=== PATIENT | male | born 1945 | race Caucasian/White ===

== ENCOUNTER 2020-04-12 16:42 | Emergency (ER) | payer MEDICARE, BC ==
[~2020-04-12] VITALS: Ht 182.9 cm; Wt 80.7 kg
--- NOTE | 2020-04-12 17:56 | Emergency Department Note ---
History of Present Illnes History of Present Illness Chief Complaint: General Medicine Complaints History of Present Illness This is a 74 year old male arrives to the ED after accidentally hitting his hand with a lawnmower pulled. Patient states a lawnmower pull snapped and hit him on his left hand denies any trauma denies any pain. Chief Complaint Comment PATIENT IN FROM HOME WITH COMPLAINTS OF LEFT HAND PUNCTURE FROM A LAWNMOWER PULL STARTS; PATIENT STATES HE HAD DIFFICULTY GETTING THE BLEEDING TO STOP AT HOME; PATIENT ALERT AND ORIENTED, RESP EVEN AND NONLABORED, APPEARS IN NO DISTRESS. NO BLEEDING NOTED IN TRIAGE Historian: Patient Arrival Mode: Car Onset (how long ago): minute(s) Radiation: non-radiation Onset quality: sudden Duration (how long): hour(s) Progression: unchanged Context: trauma/injury Exacerbating factors: none Associated symptoms: denies other symptoms Treatments prior to arrival: none Past Medical/Family History Physician Review I have reviewed the patient's past medical and family history. Any updates have been documented here. Past Medical History Recent Fever: No Clinical Suspicion of Infectio: No New/Unexplained Change in Ment: No Past Medical History: Diabetes Past Surgical History: Appendectomy, Hernia Repair Social History Smoking Cessation: Never Smoker Counseling Performed: No Alcohol Use: None Any Illegal Drug Use: No TB Exposure/Symptoms: No Physically hurt or threatened: No Family History Family history of heart diseas: No Other Last Tetanus: UNKNOWN Any Pre-Existing Lines (PICC,: No Is patient up to date on immun: Yes Last Flu: UTD Last Pneumovax: UTD Review of Systems Review of Systems Constitutional: no symptoms EENTM: no symptoms Cardiovascular: no symptoms Respiratory: no symptoms Gastrointestinal: no symptoms Genitourinary: no symptoms Musculoskeletal: no symptoms, other (hand abrasion/superficial laceration) Neurological: no symptoms Psychological: no symptoms Endocrine: no symptoms Hematological/Lymphatic: no symptoms Review of other systems All other systems reviewed and negative. Physical Exam Related Data Allergies: Coded Allergies: No Known Allergies (Unverified , 04/12/20) Triage Vital Signs Vital Signs Date Time Temp Pulse Resp B/P (MAP) Pulse Ox O2 Delivery O2 Flow Rate FiO2 04/12/20 16:53 97.9 85 18 165/95 96 Vital signs reviewed: Yes Physical Exam CONSTITUTIONAL Constitutional: well-developed, well-nourished HENT HENT: normocephalic, atraumatic, oropharynx clear/moist, nose normal HENT L/R: left ext ear normal, right ext ear normal EYES Eyes: PERRL, conjunctivae normal NECK Neck: ROM normal PULMONARY Pulmonary: effort normal, breath sounds normal CARDIOVASCULAR Cardiovascular: regular rhythm, heart sounds normal, capillary refill normal, n ormal rate GASTROINTESTINAL Abdominal: soft, nontender, bowel sounds normal GENITOURINARY Genitourinary: exam deferred SKIN Skin: warm, dry MUSCULOSKELETAL Musculoskeletal: ROM normal (superficial abrasion noted over the dorsal aspect of the left hand, no active bleeding, normal pulses,) NEUROLOGICAL Neurological: alert, oriented x 3, no gross motor or sensory deficits PSYCHOLOGICAL Psychological: mood/affect normal, judgement normal Results Imaging Imaging results reviewed: Yes Impressions IMPRESSION: No acute displaced fracture. Arthritic changes. Critical Care Time Subsequent provider I assumed direction of critical care for this patient from another provider of my specialty. Assessment & Plan Assessment & Plan Final Impression: (1) ABRASION OF LEFT HAND, INITIAL ENCOUNTER Assessment & Plan X-ray, tetanus, discharge Outpatient hand/plastics follow-up given Last Vital Signs Date Time Temp Pulse Resp B/P (MAP) Pulse Ox O2 Delivery O2 Flow Rate FiO2 04/12/20 16:53 97.9 85 18 165/95 96 KELLY VALDEZ DO Apr 12, 2020 17:56
--- NOTE | 2020-04-12 18:20 | Diagnostic Imaging Report ---
HAND 3+ VIEWS LEFT - 3 views HISTORY: Left hand injury. Trauma. COMPARISON: None available. FINDINGS: Bones: No acute displaced fracture. 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 Joints: Moderate degenerative osteoarthrosis of the first carpometacarpal joint. Mild degenerative changes of the DIP and interphalangeal joints with subchondral erosions. Soft tissues: The soft tissues appear unremarkable. IMPRESSION: No acute displaced fracture. Arthritic changes. Signed by: Dr. Micheline Durant M.D. on 04/12/2020 6:17 PM
[2020-04-12] MEDS ORDERED: AUGMENTIN 875-1 EACH PO (18:38)
--- NOTE | 2020-04-12 19:09 | NUR ---
PATIENT HYPERTENSIVE IN TRIAGE; PER FAMILY HE ALWAYS HAS HIGH BLOOD PRESSURE AT THE HOSPITAL. PATIENT ASYMPTOMATIC, DENIES SHORTNESS OF BREATH OR CHEST PAIN. PATIENTS DAUGHTER STATES THAT SHE IS GOING TO STAY WITH HIM TONIGHT AND WILL MONITOR HIS BLOOD PRESSURE
[2020-04-12 19:12] VITALS: BP 193/115
== END 2020-04-12 19:13 | disposition home or self-care (01) ==
LOC: ER 16:42
DX: S60.512A Abrasion of left hand, initial encounter (principal); W22.8XXA Striking against or struck by other objects, initial encounter; Y93.H2 Activity, gardening and landscaping; Y92.007 Garden or yard of unspecified non-institutional (private) residence as the place of occurrence of the external cause; E11.9 Type 2 diabetes mellitus without complications
CPT/HCPCS: 99283

== ENCOUNTER → 2021-01-31 | Day surgery (SDC) | payer MEDICARE, BC ==
[2021-01-27 10:28] LABS: BASOPHILS % 0.8 % (0.0-1.0); EOSINOPHILS # (AUTO) 0.2 (0.0-0.4); EOSINOPHILS % 4.8 % (0.0-6.0); HEMATOCRIT 37.6 % (38.2-49.6); HEMOGLOBIN 13.1 g/dL (14.0-18.0); LYMPHOCYTES # (AUTO) 1.6 (1.0-3.2); LYMPHOCYTES % 32.5 % (18.0-39.1); MEAN CORPUSCULAR HEMOGLOBIN 31.9 pg (28-32); MEAN CORPUSCULAR HGB CONC 34.8 g/dL (31-35); MEAN CORPUSCULAR VOLUME 91.5 fL (81-99); MONOCYTES # (AUTO) 0.6 (0.2-0.8); NEUTROPHILS # (AUTO) 2.5 (2.1-6.9); NEUTROPHILS % 50.7 % (38.7-80.0); PLATELET COUNT 234 x10e3/uL (140-360); RED BLOOD COUNT 4.11 x10e6/uL (4.3-5.7); RED CELL DISTRIBUTION WIDTH 11.8 % (11.7-14.4)
[~2021-01-31] MED LIST: AMITRIPTYLINE H25 MG PO; ARICEPT5 MG PO; AUGMENTIN 875-1 EACH PO; EPHEDRINE SULFATE INJ 50 MG/ML VIAL ONE; FENTANYL CITRATE/PF 100MCG/2 ML INJ ONE; GLUCAGON FOR INJ 1 MG VIAL ONE; HUMALOG MI100 UNIT/2 SQ; HYOSCYAMINE SULFATE 0.5 MG/ML INJ ONE; INSULIN REGULAR, HUMAN 100 UNIT/1 ML 3ML VIAL ONE; LANTUS 3ML100 UNITS/ SC; LIDOCAINE HCL 2% LOCAL INJ 5 ML SDV VIAL INJ ONE; LYRICA150 MG PO; MELOXICAM7.5 MG PO; MIDAZOLAM HCL 2 MG/2 ML VIAL ONE; NAMENDA10 MG PO; PROPOFOL IV EMULSION 10 MG/ML 20 ML VIAL ONE; VITAMIN B COMP1 EACH PO
[2021-01-31 10:30] VITALS: BP 100/69
== END | disposition home or self-care (01) ==
LOC: OR 06:05
PROVIDERS: ATTEND Internal Medicine Gastroenterology
DX: Z12.11 Encounter for screening for malignant neoplasm of colon (principal); K62.1 Rectal polyp; K64.8 Other hemorrhoids; K59.09 Other constipation; K21.9 Gastro-esophageal reflux disease without esophagitis; E11.9 Type 2 diabetes mellitus without complications; R03.0 Elevated blood-pressure reading, without diagnosis of hypertension; F01.50 Vascular dementia, unspecified severity, without behavioral disturbance, psychotic disturbance, mood disturbance, and anxiety; Z01.810 Encounter for preprocedural cardiovascular examination; Z01.812 Encounter for preprocedural laboratory examination; Z20.822 Contact with and (suspected) exposure to COVID-19; Z79.4 Long term (current) use of insulin; Z86.73 Personal history of transient ischemic attack (TIA), and cerebral infarction without residual deficits
CPT/HCPCS: 36415 ×2; 45384; 82948; 85025; 88305; 93005; J2250; J3010; U0002; 45378; J1610; J1817; J1980; J2001

== ENCOUNTER 2021-05-21 12:24 | Emergency (ER) | payer MEDICARE, BC ==
[~2021-05-21] VITALS: Ht 182.9 cm; Wt 80.7 kg
[~2021-05-21 12:24] MED LIST changes: -EPHEDRINE SULFATE INJ 50 MG/ML VIAL ONE; -FENTANYL CITRATE/PF 100MCG/2 ML INJ ONE; -GLUCAGON FOR INJ 1 MG VIAL ONE; -HYOSCYAMINE SULFATE 0.5 MG/ML INJ ONE; -INSULIN REGULAR, HUMAN 100 UNIT/1 ML 3ML VIAL ONE; -LIDOCAINE HCL 2% LOCAL INJ 5 ML SDV VIAL INJ ONE; -MIDAZOLAM HCL 2 MG/2 ML VIAL ONE; -PROPOFOL IV EMULSION 10 MG/ML 20 ML VIAL ONE
== END 2021-05-21 13:33 | disposition home or self-care (01) ==
LOC: ER 12:39
DX: S61.305A Unspecified open wound of left ring finger with damage to nail, initial encounter (principal); W26.8XXA Contact with other sharp object(s), not elsewhere classified, initial encounter; Y93.H9 Activity, other involving exterior property and land maintenance, building and construction; Y92.008 Other place in unspecified non-institutional (private) residence as the place of occurrence of the external cause; E11.9 Type 2 diabetes mellitus without complications
CPT/HCPCS: 99283

== ENCOUNTER 2021-06-09 13:20 | Outpatient (RCR) | payer MEDICARE, BC ==
[2021-06-02 12:55] LABS: BASOPHILS % 0.6 % (0.0-1.0); EOSINOPHILS # (AUTO) 0.2 (0.0-0.4); EOSINOPHILS % 4.4 % (0.0-6.0); HEMATOCRIT 37.1 % (38.2-49.6); HEMOGLOBIN 12.4 g/dL (14.0-18.0); LYMPHOCYTES # (AUTO) 1.4 (1.0-3.2); LYMPHOCYTES % 25.9 % (18.0-39.1); MEAN CORPUSCULAR HEMOGLOBIN 31.6 pg (28-32); MEAN CORPUSCULAR HGB CONC 33.4 g/dL (31-35); MEAN CORPUSCULAR VOLUME 94.4 fL (81-99); MONOCYTES # (AUTO) 0.5 (0.2-0.8); MONOCYTES % 9.1 % (4.4-11.3); NEUTROPHILS # (AUTO) 3.2 (2.1-6.9); NEUTROPHILS % 59.6 % (38.7-80.0); PLATELET COUNT 252 x10e3/uL (140-360); RED BLOOD COUNT 3.93 x10e6/uL (4.3-5.7); RED CELL DISTRIBUTION WIDTH 11.8 % (11.7-14.4)
[2021-06-02 13:16] LABS: ALBUMIN 3.8 g/dL (3.5-5.0); ALBUMIN/GLOBULIN RATIO 1.4 (0.8-2.0); ANION GAP 11.6 mmol/L (8-16); CALCIUM 8.7 mg/dL (8.4-10.2); CREATININE, SERUM 0.86 mg/dL (0.72-1.25); POTASSIUM 4.6 mmol/L (3.5-5.1)
[~2021-06-09 13:20] MED LIST changes: +LIDOCAINE VISC 2% SOLN 15 ML UDC ONE; +LIDOCAINE/PRILOCAINE 2.5-2.5% KIT ONE
[2021-06-12] MEDS ORDERED: JUVEN PACKET1 EACH (15:34)
[2021-06-12] MEDS ORDERED: B COMPLEX1 EACH (15:34)
[2021-06-12] MEDS ORDERED: VITAMIN C500 MG PO (15:34)
[2021-06-12] MEDS ORDERED: CITALOPRAM HBR20 MG PO (15:35)
== END 2021-06-11 ==
LOC: WCC 13:20
PROVIDERS: ATTEND Family Medicine Adult Medicine
DX: E10.628 Type 1 diabetes mellitus with other skin complications (principal); S51.802A Unspecified open wound of left forearm, initial encounter; G99.0 Autonomic neuropathy in diseases classified elsewhere; G45.9 Transient cerebral ischemic attack, unspecified; I10 Essential (primary) hypertension; F33.0 Major depressive disorder, recurrent, mild; W28.XXXA Contact with powered lawn mower, initial encounter
CPT/HCPCS: 36415; 80053; 83036; 84134; 85025

== ENCOUNTER 2021-06-16 05:57 | Observation (INO) | payer MEDICARE, BC ==
[2021-06-13 11:24] LABS: BASOPHILS % 0.6 % (0.0-1.0); EOSINOPHILS # (AUTO) 0.3 (0.0-0.4); EOSINOPHILS % 4.2 % (0.0-6.0); HEMATOCRIT 38.5 % (38.2-49.6); HEMOGLOBIN 12.8 g/dL (14.0-18.0); LYMPHOCYTES # (AUTO) 1.6 (1.0-3.2); LYMPHOCYTES % 23.7 % (18.0-39.1); MEAN CORPUSCULAR HEMOGLOBIN 31.8 pg (28-32); MEAN CORPUSCULAR HGB CONC 33.2 g/dL (31-35); MEAN CORPUSCULAR VOLUME 95.8 fL (81-99); MONOCYTES # (AUTO) 0.5 (0.2-0.8); MONOCYTES % 7.5 % (4.4-11.3); NEUTROPHILS # (AUTO) 4.3 (2.1-6.9); NEUTROPHILS % 63.9 % (38.7-80.0); PLATELET COUNT 264 x10e3/uL (140-360); RED BLOOD COUNT 4.02 x10e6/uL (4.3-5.7)
[2021-06-13 11:34] LABS: INR 0.9; PROTHROMBIN TIME 12.3 seconds (11.9-14.5)
[2021-06-13 11:35] LABS: PARTIAL THROMBOPLASTIN TIME 32.7 seconds (23.8-35.5)
[2021-06-13 11:43] LABS: CREATININE, SERUM 0.89 mg/dL (0.72-1.25)
[~2021-06-16] VITALS: Ht 182.9 cm; Wt 80.7 kg
[~2021-06-16 05:57] MED LIST changes: +B COMPLEX1 EACH; +CITALOPRAM HBR20 MG PO; +JUVEN PACKET1 EACH; -LIDOCAINE VISC 2% SOLN 15 ML UDC ONE; -LIDOCAINE/PRILOCAINE 2.5-2.5% KIT ONE; +VITAMIN C500 MG PO
[2021-06-16] MEDS ORDERED: SODIUM CHLORIDE 0.9% 50ML 100 ML ONE (06:47)
[2021-06-16] MEDS ORDERED: THROMBIN FOR SOLN 5,000 UNIT VIAL ONE (07:07)
[2021-06-16] MEDS ORDERED: Vancomycin IV 1 GM VIAL ONE (07:07)
[2021-06-16] MEDS ORDERED: LIDOCAINE 1% W/EPINEPHRINE 20 ML VIAL ONE (07:07)
[2021-06-16] MEDS ORDERED: INSULIN REGULAR, HUMAN 100 UNIT/1 ML ONE ×2 (07:16→15:13)
[2021-06-16] MEDS ORDERED: HYDROCODON-ACE1 EA12 PO (09:13)
[2021-06-16] MEDS ORDERED: HYDROMORPHONE 2MG/ML 2 MG/ML ML IV PRN ×2 (09:15)
[2021-06-16] MEDS ORDERED: ONDANSETRON HCL INJ 2MG/ML 2ML 2 MG/ML VIAL IV PRN (09:15)
[2021-06-16] MEDS ORDERED: MORPHINE SULFATE 5 MG/ML VIAL IM PRN (09:15)
[2021-06-16] MEDS ORDERED: CEPACOL SORE THROAT LOZENGES PO PRN (09:15)
[2021-06-16] MEDS ORDERED: MAGNESIUM/ALUMINUM/SIMETHICONE 30 ML UDC PO PRN (09:15)
[2021-06-16] MEDS ORDERED: CARISOPRODOL 350 MG TAB PO PRN (09:15)
[2021-06-16] MEDS ORDERED: DEXTROSE 50% SYRINGE 50 ML IV PRN (09:15)
[2021-06-16] MEDS ORDERED: ACETAMINOPHEN 325 MG TAB PO PRN (09:15)
[2021-06-16] MEDS ORDERED: PROMETHAZINE HCL (IM) 25 MG/ML VIAL IM PRN (09:15)
[2021-06-16] MEDS ORDERED: GLYCOPYRROLATE INJ 0.2 MG/ML VIAL ONE (13:38)
[2021-06-16] MEDS ORDERED: ONDANSETRON HCL INJ 2MG/ML 2ML 2 MG/ML VIAL ONE (13:38)
[2021-06-16] MEDS ORDERED: SEVOFLURANE INHAL SOLN 250 ML PEN BTL ONE (13:38)
[2021-06-16] MEDS ORDERED: DEXAMETHASONE SOD PHOS INJ 4 MG/ML VIAL ONE (13:38)
[2021-06-16] MEDS ORDERED: KETOROLAC TROMETHAMINE 30 MG/ML VIAL ONE (13:38)
[2021-06-16] MEDS ORDERED: PROPOFOL IV EMULSION 10 MG/ML 20 ML VIAL ONE (13:38)
[2021-06-16] MEDS ORDERED: NEOSTIGMINE 1 MG/ML 10ML VIAL ONE (13:38)
[2021-06-16] MEDS ORDERED: PHENYLEPHRINE HCL 1% 10 MG/ML VIAL ONE (13:38)
[2021-06-16] MEDS ORDERED: POVIDONE IODINE 0.05% 0.05 % ML PO ONE (13:38)
[2021-06-16] MEDS ORDERED: ROCURONIUM BROMIDE 10 MG/ML 5ML VIAL IV ONE (13:38)
[2021-06-16] MEDS ORDERED: LIDOCAINE HCL 2% LOCAL INJ 5 ML SDV VIAL INJ ONE (13:38)
[2021-06-16] MEDS ORDERED: EPHEDRINE SULFATE INJ 50 MG/ML VIAL ONE (13:38)
[2021-06-16] MEDS ORDERED: ACETAMINOPHEN 325 MG TAB ONE (13:59)
[2021-06-16] MEDS: INSULIN LISPRO 100 UNIT/1 ML 3ML VIAL SQ SCH ×3 (15:11→21:00)
[2021-06-16 17:00] VITALS: BP_SYST 137; BP_SYST 145; BP_DIAS 68; BP_DIAS 81
[2021-06-16 17:14] VITALS: BP 137/68
[2021-06-16] MEDS: MEMANTINE 10 MG TAB PO SCH (17:33)
[2021-06-16] MEDS: PREGABALIN 75 MG CAP PO SCH (17:33)
[2021-06-16] MEDS: OXYCODONE/ACETAMINOPHEN 5-325 1 EACH TABLET PO PRN (17:48)
[2021-06-16] MEDS: Cefazolin 1 GM in SODIUM CHLORIDE 0.9% 50ML 50 ML IV SCH (17:49)
[2021-06-16] MEDS: LACTATED RINGER'S 1,000 ML IV SCH (19:02)
[2021-06-16 20:00] VITALS: BP 130/81
[2021-06-16 20:20] VITALS: BP 130/81
[2021-06-16] MEDS ORDERED: AMITRIPTYLINE HCL 25 MG TAB PO SCH (21:00)
[2021-06-16] MEDS ORDERED: DONEPEZIL HCL 5 MG TAB PO SCH (21:00)
[2021-06-16] MEDS ORDERED: ZOLPIDEM TARTRATE 5 MG TAB PO PRN (21:00)
[2021-06-17] VITALS: BP 148/81
[2021-06-17] MEDS: Cefazolin 1 GM in SODIUM CHLORIDE 0.9% 50ML 50 ML IV SCH ×2 (00:05→08:33)
[2021-06-17] MEDS: LACTATED RINGER'S 1,000 ML IV SCH ×2 (01:55→10:33)
[2021-06-17] MEDS: OXYCODONE/ACETAMINOPHEN 5-325 1 EACH TABLET PO PRN (03:45)
[2021-06-17 04:00] VITALS: BP 170/88
[2021-06-17] MEDS: INSULIN LISPRO 100 UNIT/1 ML 3ML VIAL SQ SCH ×2 (08:00→12:12)
[2021-06-17 08:04] VITALS: BP 157/85
[2021-06-17] MEDS: MEMANTINE 10 MG TAB PO SCH (08:33)
[2021-06-17] MEDS: PREGABALIN 75 MG CAP PO SCH (08:33)
[2021-06-17] MEDS ORDERED: MELOXICAM 7.5 MG TAB PO SCH (09:00)
[2021-06-17] MEDS ORDERED: CITALOPRAM HYDROBROMIDE 20 MG TAB PO SCH (09:00)
[2021-06-17 11:15] VITALS: BP 141/82
== END 2021-06-17 12:32 | disposition home or self-care (01) ==
LOC: OR 05:57 → PACU V 13:54 → MED/SURG3 16:30
PROVIDERS: ADMIT Neurological Surgery; ATTEND Neurological Surgery
DX: M48.062 Spinal stenosis, lumbar region with neurogenic claudication (principal); Z20.822 Contact with and (suspected) exposure to COVID-19; Z01.818 Encounter for other preprocedural examination; F01.50 Vascular dementia, unspecified severity, without behavioral disturbance, psychotic disturbance, mood disturbance, and anxiety; K21.9 Gastro-esophageal reflux disease without esophagitis; I10 Essential (primary) hypertension; D64.9 Anemia, unspecified
CPT/HCPCS: 36415 ×3; 63047; 63048; 71046; 72020; 80048; 82948 ×2; 85025; 85610; 85730; 86850; 86900; 88304; 88311; 93005; 96361; 97161; G0378 ×2; J0690 ×2; J1100; J1885; J2001; J2370; J2405; J2704; J2710; J3370; U0002; J1817

== ENCOUNTER → 2021-06-30 | Outpatient (CLI) | payer MEDICARE, BC ==
[~2021-06-30] MED LIST changes: +HYDROCODON-ACE1 EA12 PO
== END ==
LOC: RAD 10:10
PROVIDERS: ATTEND Family Medicine Adult Medicine
DX: S61.205A Unspecified open wound of left ring finger without damage to nail, initial encounter (principal)

== ENCOUNTER 2021-07-05 09:12 | Outpatient (RCR) | payer MEDICARE, BC ==
[~2021-07-05 09:12] MED LIST changes: +FENTANYL CITRATE/PF 100MCG/2 ML INJ ONE; +HEPARIN SOD/SOD CHLORIDE 0 ML ONE; +IOPAMIDOL 300MG/ML 100 ML INFUS..BTL IV ONE; +LIDOCAINE HCL 2% LOCAL 20 ML VIAL ONE; +MIDAZOLAM HCL 2 MG/2 ML VIAL ONE; +SODIUM CHLORIDE 0.9% 1000ML 0 ML ONE
== END 2021-07-12 ==
LOC: WCC 09:12
PROVIDERS: ATTEND Family Medicine Adult Medicine
DX: E10.628 Type 1 diabetes mellitus with other skin complications (principal); S51.802A Unspecified open wound of left forearm, initial encounter; G45.9 Transient cerebral ischemic attack, unspecified; I10 Essential (primary) hypertension; G99.0 Autonomic neuropathy in diseases classified elsewhere; F33.0 Major depressive disorder, recurrent, mild; E44.1 Mild protein-calorie malnutrition; W28.XXXA Contact with powered lawn mower, initial encounter
CPT/HCPCS: J2001; J2250; J3010; J7030; Q9967

== ENCOUNTER 2021-07-11 12:53 | Outpatient (RCR) | payer MEDICARE, BC ==
[~2021-07-11 12:53] MED LIST changes: -FENTANYL CITRATE/PF 100MCG/2 ML INJ ONE; -HEPARIN SOD/SOD CHLORIDE 0 ML ONE; -IOPAMIDOL 300MG/ML 100 ML INFUS..BTL IV ONE; -LIDOCAINE HCL 2% LOCAL 20 ML VIAL ONE; -MIDAZOLAM HCL 2 MG/2 ML VIAL ONE; -SODIUM CHLORIDE 0.9% 1000ML 0 ML ONE
== END 2021-07-12 ==
LOC: PT 12:53
PROVIDERS: ATTEND Neurological Surgery
DX: M48.062 Spinal stenosis, lumbar region with neurogenic claudication (principal)

== ENCOUNTER 2021-08-04 13:00 | Outpatient (RCR) | payer MEDICARE, BC | END 2021-08-11 | LOC: PT 13:00 | PROVIDERS: ATTEND Neurological Surgery | DX: M48.062 Spinal stenosis, lumbar region with neurogenic claudication (principal); M62.81 Muscle weakness (generalized); M53.86 Other specified dorsopathies, lumbar region | CPT/HCPCS: 97139 ==

== ENCOUNTER 2024-08-07 15:06 | Emergency (ER) | payer MEDICARE, BC ==
[~2024-08-07] VITALS: Ht 182.9 cm; Wt 80.7 kg
[~2024-08-07 15:06] MED LIST changes: +ESCITALOPRAM OX10 MG PO
[2024-08-07 15:08] VITALS: PULSE 77; RESP 14; TEMP 98.1; O2SAT 98
[2024-08-07] MEDS ORDERED: CEPHALEXIN500 MG PO (16:11)
[2024-08-07] MEDS ORDERED: HYDROCODON-ACE1 EA11 PO (16:11)
== END 2024-08-07 16:38 | disposition home or self-care (01) ==
LOC: ER 15:14
DX: S68.022A Partial traumatic metacarpophalangeal amputation of left thumb, initial encounter (principal); W27.0XXA Contact with workbench tool, initial encounter; Y92.89 Other specified places as the place of occurrence of the external cause; E11.9 Type 2 diabetes mellitus without complications; F03.90 Unspecified dementia, unspecified severity, without behavioral disturbance, psychotic disturbance, mood disturbance, and anxiety
CPT/HCPCS: 73130; 99284; J0690

== ENCOUNTER → 2024-08-14 | Day surgery (SDC) | payer MEDICARE, BC ==
[2024-08-11 12:09] LABS: BASOPHILS % 0.2 % (0.0-1.0); EOSINOPHILS # (AUTO) 0.3 (0.0-0.4); EOSINOPHILS % 5.3 % (0.0-6.0); HEMATOCRIT 36.7 % (38.2-49.6); HEMOGLOBIN 11.8 g/dL (14.0-18.0); LYMPHOCYTES # (AUTO) 1.5 (1.0-3.2); LYMPHOCYTES % 29.5 % (18.0-39.1); MEAN CORPUSCULAR HEMOGLOBIN 32.1 pg (28-32); MEAN CORPUSCULAR HGB CONC 32.2 g/dL (31-35); MEAN CORPUSCULAR VOLUME 99.7 fL (81-99); MONOCYTES # (AUTO) 0.5 (0.2-0.8); MONOCYTES % 9.4 % (4.4-11.3); NEUTROPHILS # (AUTO) 2.8 (2.1-6.9); NEUTROPHILS % 55.4 % (38.7-80.0); PLATELET COUNT 208 x10e3/uL (140-360); RED BLOOD COUNT 3.68 x10e6/uL (4.3-5.7); RED CELL DISTRIBUTION WIDTH 11.5 % (11.7-14.4); WHITE BLOOD COUNT 5.11 x10e3/uL (4.8-10.8)
[2024-08-11 12:42] LABS: ANION GAP 12.5 mmol/L (8-16); CREATININE, SERUM 0.86 mg/dL (0.72-1.25)
[2024-08-11 13:20] LABS: POTASSIUM 5.5 mmol/L (3.5-5.1)
[~2024-08-14] MED LIST changes: +BUPIVACAINE 0.5%/EPI 30 ML SDV INJ ONE; +BUPIVACAINE HCL 0.5% INJ 30 ML VIAL INJ ONE; +CEPHALEXIN500 MG PO; +DEXAMETHASONE SOD PHOS INJ 4 MG/ML SDV ONE; +EPHEDRINE SULFATE INJ 50 MG/ML VIAL ONE; +FENTANYL CITRATE/PF 100MCG/2 ML INJ ONE; +HYDROCODON-ACE1 EA11 PO; +KETOROLAC TROMETHAMINE 30 MG/ML VIAL ONE; +LIDOCAINE HCL 2% LOCAL INJ 5 ML SDV VIAL INJ ONE; +MIDAZOLAM HCL 2 MG/2 ML VIAL ONE; +MUPIROCIN 2% OINT 22 GM TUBE ONE; +ONDANSETRON HCL INJ 2MG/ML 2ML 2 MG/ML VIAL ONE; +PROPOFOL IV EMULSION 10 MG/ML 20 ML VIAL ONE; +SEVOFLURANE INHAL SOLN 250 ML PEN BTL ONE
[2024-08-14] MEDS: LACTATED RINGER'S 1,000 ML ONE (06:04)
[2024-08-14 08:56] VITALS: TEMP 97.3
[2024-08-14 10:00] VITALS: BP 162/86; PULSE 82; RESP 20; O2SAT 96
== END | disposition home or self-care (01) ==
LOC: OR 06:04
PROVIDERS: ATTEND Plastic Surgery
DX: S68.522A Partial traumatic transphalangeal amputation of left thumb, initial encounter (principal); E11.9 Type 2 diabetes mellitus without complications; G89.29 Other chronic pain; K21.9 Gastro-esophageal reflux disease without esophagitis; F32.A Depression, unspecified; I69.859 Hemiplegia and hemiparesis following other cerebrovascular disease affecting unspecified side; H54.7 Unspecified visual loss; G30.9 Alzheimer's disease, unspecified; F02.80 Dementia in other diseases classified elsewhere, unspecified severity, without behavioral disturbance, psychotic disturbance, mood disturbance, and anxiety; W27.0XXA Contact with workbench tool, initial encounter; Z01.810 Encounter for preprocedural cardiovascular examination; Z01.812 Encounter for preprocedural laboratory examination; Z01.818 Encounter for other preprocedural examination; Z79.1 Long term (current) use of non-steroidal anti-inflammatories (NSAID); Z79.4 Long term (current) use of insulin; Z79.899 Other long term (current) drug therapy
CPT/HCPCS: 15240; 36415; 71046; 80048; 85025; 93005; J0690; J1100; J1885; J2001; J2250; J2405; J2704; J3010; J7121; J2003

== ENCOUNTER → 2025-01-26 | Outpatient (REF) | payer MEDICARE, BC ==
[~2025-01-26] MED LIST changes: -BUPIVACAINE 0.5%/EPI 30 ML SDV INJ ONE; -BUPIVACAINE HCL 0.5% INJ 30 ML VIAL INJ ONE; -DEXAMETHASONE SOD PHOS INJ 4 MG/ML SDV ONE; -EPHEDRINE SULFATE INJ 50 MG/ML VIAL ONE; -FENTANYL CITRATE/PF 100MCG/2 ML INJ ONE; -KETOROLAC TROMETHAMINE 30 MG/ML VIAL ONE; -LIDOCAINE HCL 2% LOCAL INJ 5 ML SDV VIAL INJ ONE; -MIDAZOLAM HCL 2 MG/2 ML VIAL ONE; -MUPIROCIN 2% OINT 22 GM TUBE ONE; -ONDANSETRON HCL INJ 2MG/ML 2ML 2 MG/ML VIAL ONE; -PROPOFOL IV EMULSION 10 MG/ML 20 ML VIAL ONE; -SEVOFLURANE INHAL SOLN 250 ML PEN BTL ONE
== END ==
LOC: US 11:03
PROVIDERS: ATTEND Urology
DX: N18.9 Chronic kidney disease, unspecified (principal)
CPT/HCPCS: 76770; 76857

== ENCOUNTER 2025-08-19 16:33 | Emergency (ER) | payer MEDICARE, BC ==
[~2025-08-19] VITALS: Ht 182.9 cm; Wt 77.1 kg
[~2025-08-19 16:33] MED LIST changes: +CALTRATE PLUS1 EACH PO; +FINASTERIDE5 MG PO; +FLOMAX0.4 MG PO
[2025-08-19 16:52] VITALS: TEMP 98.1
[2025-08-19 17:19] LABS: BASOPHILS % 0.6 % (0.0-1.0); EOSINOPHILS % 6.2 % (0.0-6.0); LYMPHOCYTES % 33.6 % (18.0-39.1); MONOCYTES % 8.6 % (4.4-11.3); NEUTROPHILS % 50.8 % (38.7-80.0); RED CELL DISTRIBUTION WIDTH 12.0 % (11.7-14.4)
[2025-08-19 17:36] LABS: EST GLOMERULAR FILTRATION RATE 39.0 ML/MIN (>=60)
[2025-08-19] MEDS: FUROSEMIDE INJ 10 MG/ML 4 ML VIAL IV ONE (18:46)
[2025-08-19] MEDS: DEXTROSE 50% SYRINGE 50 ML IV ONE (18:49)
[2025-08-19] MEDS: INSULIN REGULAR, HUMAN 100 UNIT/1 ML IV ONE (18:49)
[2025-08-19] MEDS: SODIUM BICARBONATE 8.4% INJ 50 ML SYR IV STA (18:50)
[2025-08-19] MEDS: CALCIUM GLUC 1 G/50 ML NACL 50 ML IV ONE (18:50)
[2025-08-19 18:55] VITALS: PULSE 74; RESP 17
[2025-08-19 20:55] LABS: EST GLOMERULAR FILTRATION RATE 44.0 ML/MIN (>=60)
[2025-08-19] MEDS ORDERED: FLOMAX0.4 MG PO (21:35)
[2025-08-19] MEDS ORDERED: CIPRO500 MG PO (21:36)
[2025-08-19 22:12] VITALS: BP 161/112; PULSE 78; RESP 20; O2SAT 100
== END 2025-08-19 22:00 | disposition home or self-care (01) ==
LOC: ER 17:04
DX: E87.5 Hyperkalemia (principal); R33.9 Retention of urine, unspecified; E11.65 Type 2 diabetes mellitus with hyperglycemia; F03.90 Unspecified dementia, unspecified severity, without behavioral disturbance, psychotic disturbance, mood disturbance, and anxiety; M19.09 Primary osteoarthritis, other specified site
CPT/HCPCS: 36415; 80053; 82948; 85025; 93005; 99284; J1938; J7799; 80048

== ENCOUNTER 2025-08-24 05:30 | Inpatient (IN) | payer MEDICARE, BC ==
[2025-08-19 14:13] LABS: BASOPHILS % 0.4 % (0.0-1.0); EOSINOPHILS % 5.7 % (0.0-6.0); LYMPHOCYTES % 28.1 % (18.0-39.1); MONOCYTES % 8.1 % (4.4-11.3); NEUTROPHILS % 57.5 % (38.7-80.0); RED CELL DISTRIBUTION WIDTH 11.9 % (11.7-14.4)
[2025-08-19 14:45] LABS: EST GLOMERULAR FILTRATION RATE 39.0 ML/MIN (>=60)
[~2025-08-24] VITALS: Ht 182.9 cm; Wt 77.1 kg
[~2025-08-24 05:30] MED LIST changes: +CIPRO500 MG PO
[2025-08-24] MEDS: GENTAMICIN 80MG/NS 100 ML 200 ML IV ONE (06:17)
[2025-08-24] MEDS: SODIUM CHLORIDE 0.9% 1000ML 1,000 ML ONE (06:18)
[2025-08-24] MEDS: CEFTRIAXONE 1 GM VIAL ONE (06:18)
[2025-08-24] MEDS ORDERED: DEXAMETHASONE SOD PHOS INJ 4 MG/ML SDV ONE (06:37)
[2025-08-24] MEDS ORDERED: ONDANSETRON HCL INJ 2MG/ML 2ML 2 MG/ML VIAL ONE (06:37)
[2025-08-24] MEDS ORDERED: PROPOFOL IV EMULSION 10 MG/ML 20 ML VIAL ONE (06:37)
[2025-08-24] MEDS ORDERED: LIDOCAINE HCL 2% LOCAL INJ 5 ML SDV VIAL INJ ONE (06:37)
[2025-08-24] MEDS ORDERED: SODIUM CHLORIDE 0.9% 100 ML ONE (06:37)
[2025-08-24] MEDS ORDERED: FENTANYL CITRATE/PF 100MCG/2 ML INJ ONE (06:38)
[2025-08-24] MEDS ORDERED: SUCCINYLCHOLINE CHLORIDE 20 MG/ML 10ML VIAL ONE (06:41)
[2025-08-24] MEDS ORDERED: ONDANSETRON HCL INJ 2MG/ML 2ML 2 MG/ML VIAL IV PRN (09:15)
[2025-08-24] MEDS ORDERED: ACETAMINOPHEN 1000 MG/100 ML IV PRN (09:15)
[2025-08-24] MEDS: FENTANYL CITRATE/PF 100MCG/2 ML INJ IV ONE ×4 (09:34→10:30)
[2025-08-24 09:39] LABS: BASOPHILS % 0.2 % (0.0-1.0); EOSINOPHILS % 2.2 % (0.0-6.0); LYMPHOCYTES % 22.4 % (18.0-39.1); MONOCYTES % 3.9 % (4.4-11.3); NEUTROPHILS % 70.7 % (38.7-80.0); RED CELL DISTRIBUTION WIDTH 11.8 % (11.7-14.4)
[2025-08-24 10:03] LABS: EST GLOMERULAR FILTRATION RATE 44.0 ML/MIN (>=60)
[2025-08-24] MEDS: PHENAZOPYRIDINE HCL 100 MG TAB PO ONE (11:00)
[2025-08-24 12:00] VITALS: BP 142/64; PULSE 85; RESP 18; TEMP 98.3; O2SAT 96
[2025-08-24] MEDS ORDERED: TIZANIDINE HCL4 MG PO (12:07)
[2025-08-24] MEDS ORDERED: DEXTROSE 50% SYRINGE 50 ML IV PRN (12:30)
[2025-08-24] MEDS: PHENAZOPYRIDINE HCL 100 MG TAB ONE (12:51)
[2025-08-24] MEDS: FENTANYL CITRATE/PF 100MCG/2 ML INJ ONE (12:51)
[2025-08-24] MEDS: SODIUM CHLORIDE 0.9% 1000ML 1,000 ML IV SCH (12:53)
[2025-08-24] MEDS: INSULIN LISPRO 100 UNIT/1 ML 3ML VIAL SQ SCH (12:56)
[2025-08-24 13:49] VITALS: PULSE 90; RESP 18; O2SAT 95
[2025-08-24] MEDS: SENNA-S TABLET PO SCH (16:15)
[2025-08-24 17:32] VITALS: BP 146/79; PULSE 86; RESP 17; TEMP 97.9; O2SAT 96
[2025-08-24 20:00] VITALS: BP 145/76; PULSE 82; RESP 18; TEMP 98; O2SAT 97
[2025-08-24 20:01] VITALS: PULSE 82; RESP 18; O2SAT 97
[2025-08-24] MEDS: DONEPEZIL HCL 5 MG TAB PO SCH (20:59)
[2025-08-24] MEDS: PHENAZOPYRIDINE HCL 100 MG TAB PO PRN (20:59)
[2025-08-24] MEDS: PREGABALIN 75 MG CAP PO SCH (20:59)
[2025-08-24] MEDS: TAMSULOSIN HCL 0.4 MG CAP PO SCH (21:00)
[2025-08-24] MEDS ORDERED: ESCITALOPRAM OXALATE 10 MG TAB PO SCH (21:15)
[2025-08-24] MEDS: FINASTERIDE 5 MG TAB PO SCH (21:34)
[2025-08-24] MEDS: CITALOPRAM HYDROBROMIDE 20 MG TAB PO SCH (21:35)
[2025-08-24] MEDS: MEMANTINE 10 MG TAB PO SCH (21:35)
[2025-08-24] MEDS: ESCITALOPRAM OXALATE 10 MG TAB PO SCH (21:41)
[2025-08-24] MEDS: INSULIN GLARGINE 100 UNITS/ML VIAL SQ SCH (21:41)
[2025-08-24] MEDS ORDERED: SEVOFLURANE INHAL SOLN 250 ML PEN BTL ONE (23:10)
[2025-08-25] VITALS (9 sets, daily range): BP systolic 121–166; BP diastolic 64–81; PULSE 68–77; RESP 16–20; TEMP 98–98.9; O2SAT 97–98
[2025-08-25] MEDS: ACETAMINOPHEN/CODEINE 300MG - 30MG TAB PO PRN (00:36)
[2025-08-25] MEDS: DIPHENHYDRAMINE HCL 25 MG CAP PO PRN (00:37)
[2025-08-25 05:01] LABS: BASOPHILS % 0.2 % (0.0-1.0); EOSINOPHILS % 0.3 % (0.0-6.0); LYMPHOCYTES % 15.8 % (18.0-39.1); MONOCYTES % 6.4 % (4.4-11.3); NEUTROPHILS % 76.9 % (38.7-80.0); RED CELL DISTRIBUTION WIDTH 11.8 % (11.7-14.4)
[2025-08-25 05:23] LABS: EST GLOMERULAR FILTRATION RATE 51.0 ML/MIN (>=60)
[2025-08-25] MEDS ORDERED: INSULIN ASPART 70/30 100 UNITS/ML VIAL SC SCH (09:00)
[2025-08-25] MEDS ORDERED: FINASTERIDE 5 MG TAB PO SCH (09:00)
[2025-08-25] MEDS ORDERED: MEMANTINE 10 MG TAB PO SCH (09:00)
[2025-08-25] MEDS ORDERED: INSULIN GLARGINE 100 UNITS/ML VIAL SQ SCH (09:00)
[2025-08-25] MEDS ORDERED: CITALOPRAM HYDROBROMIDE 20 MG TAB PO SCH (09:00)
[2025-08-25] MEDS ORDERED: ESCITALOPRAM OXALATE 10 MG TAB PO SCH ×2 (09:00)
[2025-08-25] MEDS: MELOXICAM 7.5 MG TAB PO SCH (09:58)
[2025-08-25] MEDS: TIZANIDINE HCL 4 MG TAB PO SCH (09:58)
[2025-08-26] VITALS (9 sets, daily range): BP systolic 153–186; BP diastolic 79–94; PULSE 70–91; RESP 18–20; TEMP 98.3–99; O2SAT 95–98
[2025-08-26 05:24] LABS: BASOPHILS % 0.4 % (0.0-1.0); EOSINOPHILS % 4.5 % (0.0-6.0); LYMPHOCYTES % 30.4 % (18.0-39.1); MONOCYTES % 7.8 % (4.4-11.3); NEUTROPHILS % 56.7 % (38.7-80.0); RED CELL DISTRIBUTION WIDTH 11.8 % (11.7-14.4)
[2025-08-26 05:58] LABS: EST GLOMERULAR FILTRATION RATE 55.0 ML/MIN (>=60)
[2025-08-27 03:43] VITALS: BP 163/84; PULSE 82; RESP 18; TEMP 98.2; O2SAT 98
[2025-08-27] MEDS ORDERED: HYDRALAZINE HCL 20 MG/ML VIAL IV PRN (04:15)
[2025-08-27 05:14] LABS: BASOPHILS % 0.4 % (0.0-1.0); EOSINOPHILS % 4.6 % (0.0-6.0); LYMPHOCYTES % 23.5 % (18.0-39.1); MONOCYTES % 7.8 % (4.4-11.3); NEUTROPHILS % 63.6 % (38.7-80.0); RED CELL DISTRIBUTION WIDTH 11.7 % (11.7-14.4)
[2025-08-27 05:55] LABS: EST GLOMERULAR FILTRATION RATE 54.0 ML/MIN (>=60)
[2025-08-27] MEDS: BISACODYL 5 MG TAB EC PO SCH (06:14)
[2025-08-27 07:00] VITALS: BP 159/89; PULSE 78; RESP 20; TEMP 97.7; O2SAT 100
[2025-08-27 12:00] VITALS: BP 151/70; PULSE 77; RESP 20; TEMP 98.2; O2SAT 98
[2025-08-27 16:56] VITALS: BP 165/88; PULSE 78; RESP 20; TEMP 98.3; O2SAT 99
== END 2025-08-27 18:26 | disposition home or self-care (01) | DRG 713 ==
LOC: OR 05:30 → PACU V 09:15 → MED/SURG 11:50
PROVIDERS: ADMIT Internal Medicine; ATTEND Internal Medicine
PROC: BT141ZZ Fluoroscopy of Kidneys, Ureters and Bladder using Low Osmolar Contrast (ICD-10-PCS; 2025-08-24)
PROC: 0VB08ZZ Excision of Prostate, Via Natural or Artificial Opening Endoscopic (ICD-10-PCS; principal; 2025-08-24 07:20)
DX: N40.1 Benign prostatic hyperplasia with lower urinary tract symptoms (principal); N13.8 Other obstructive and reflux uropathy; C61 Malignant neoplasm of prostate; R39.14 Feeling of incomplete bladder emptying; N32.81 Overactive bladder; N28.83 Nephroptosis; E87.5 Hyperkalemia; R31.0 Gross hematuria; K59.00 Constipation, unspecified; I12.9 Hypertensive chronic kidney disease with stage 1 through stage 4 chronic kidney disease, or unspecified chronic kidney disease; E11.22 Type 2 diabetes mellitus with diabetic chronic kidney disease; N18.32 Chronic kidney disease, stage 3b; Z79.4 Long term (current) use of insulin; D64.9 Anemia, unspecified; F03.90 Unspecified dementia, unspecified severity, without behavioral disturbance, psychotic disturbance, mood disturbance, and anxiety; F41.9 Anxiety disorder, unspecified; Z71.81 Spiritual or religious counseling; Z79.899 Other long term (current) drug therapy
CPT/HCPCS: 36415; 71046; 74420; 80048; 80053; 82948; 83735; 85025; 87086; 88305; 88342; 93005; 94799; C1758; J0330; J0696; J1100; J1580; J1815; J2003; J2405; J7030; J7050